=== PATIENT | female | born 1980 | race Caucasian/White ===

== ENCOUNTER 2022-04-10 10:53 | Emergency (ER) | payer OTHER ==
[~2022-04-10] VITALS: Ht 165.1 cm; Wt 63.5 kg
[~2022-04-10 10:53] MED LIST: ONDA-8 TL; PERC10 PO
[2022-04-10 11:08] VITALS: BP_SYST 128
[2022-04-10] MEDS ORDERED: MORPHINE 4 MG INJ. 4 MG/ML VIAL IM ONE (11:30)
[2022-04-10] MEDS ORDERED: ONDANSETRON 4 MG ODT TAB PO ONE (11:30)
[2022-04-10 11:42] LABS: BASOPHILS % (AUTO) 0.4 % (0.0-2.0); EOSINOPHILS % (AUTO) 1.1 % (0.0-4.0); HEMATOCRIT 39.9 % (36-48); HEMOGLOBIN 13.8 g/dL (12.0-16.0); LYMPHOCYTES # (AUTO) 1.1 K/uL (1.0-5.5); LYMPHOCYTES % (AUTO) 27.5 % (20.5-51.5); MEAN CORPUSCULAR HEMOGLOBIN 33 pg (27-31); MEAN CORPUSCULAR HGB CONC 35 % (32-36); MEAN CORPUSCULAR VOLUME 94 fL (79.0-98.0); MONOCYTES # (AUTO) 0.3 K/uL (0.0-1.0); MONOCYTES % (AUTO) 8.7 % (1.7-9.3); NEUTROPHILS # (AUTO) 2.5 K/uL (1.8-7.7); NEUTROPHILS % (AUTO) 62.3 % (40.0-70.0); PLATELET COUNT (AUTO) 281 K/uL (130-430); RED BLOOD CELL COUNT(AUTO) 4.23 MIL/uL (4.2-6.2); RED CELL DISTRIBUTION WIDTH 14.2 % (9.0-15.0)
[2022-04-10 11:47] LABS: CALCIUM 9.1 mg/dL (8.4-11.0); CREATININE 0.53 mg/dL (0.55-1.30)
[2022-04-10 11:52] LABS: ALBUMIN 3.8 g/dL (3.4-4.8); TOTAL BILIRUBIN 0.6 mg/dL (0.0-1.0)
[2022-04-10] MEDS ORDERED: ONDA-8 TL (13:36)
[2022-04-10] MEDS ORDERED: OXYC-128 PO (13:36)
[2022-04-10] MEDS ORDERED: DICY10CA13 PO (13:36)
[2022-04-10 13:50] VITALS: BP_SYST 134
== END 2022-04-10 13:50 | disposition home or self-care (01) ==
LOC: SED 10:53
DX: R10.30 Lower abdominal pain, unspecified (principal); R11.2 Nausea with vomiting, unspecified; R19.7 Diarrhea, unspecified; Z88.6 Allergy status to analgesic agent; Z88.8 Allergy status to other drugs, medicaments and biological substances; Z79.899 Other long term (current) drug therapy
CPT/HCPCS: 99285; 74176; 80053; 83690; 85025; 36415; 76376; 81002; 81025; 96372; Q0162; J2270

== ENCOUNTER 2022-05-16 08:33 | Emergency (ER) | payer OTHER ==
[~2022-05-16] VITALS: Ht 165.1 cm; Wt 68.0 kg
[~2022-05-16 08:33] MED LIST changes: +DICY10CA13 PO; +OXYC-128 PO
[2022-05-16 08:35] VITALS: BP_SYST 113
--- NOTE | 2022-05-16 08:35 | NUR ---
BROUGHT BACK TO BED #3 AND TRIAGED. REPORT GIVEN TO TRINA
--- NOTE | 2022-05-16 08:52 | NUR ---
DR MCGILL AT BEDSIDE FOR EVALUATION
--- NOTE | 2022-05-16 08:55 | NUR ---
pt presents to ED with complaint of abdominal pain / nausea/ vomiting x 3 days. pt reports unable to follow up with GI doctor for various reasons. pt noted to have had x2 recent ER visits. pt is awake a/o x4 and verbally responsive. no acute distress noted. breathing even and unlabored. safety measures in place
[2022-05-16] MEDS ORDERED: ONDANSETRON HCL 4 MG/2 ML VIAL IVP ONE (09:00)
[2022-05-16] MEDS ORDERED: MORPHINE 4 MG INJ. 4 MG/ML VIAL IVP ONE (09:00)
--- NOTE | 2022-05-16 09:10 | NUR ---
Pt initially stated daughter brought her and was in lobby. When asked pt if she can come in ED so that narcotic can be administered, pt stated "oh shes in the car". RN asked pt again if daughter can come into ED so we can see her so that narcotic can be administered as she cannot drive with narcotic administered. Pt then stated "oh i cant take like an uber" RN informed her that MD advised uber cannot be taken home if her daughter is here. Pt then stated, "oh i think she left, let me call her". MD beatty is currently at bedside talking to pt.
--- NOTE | 2022-05-16 09:44 | NUR ---
asked pt if she had an ETA on her daughter, pt stated "oh shes on her way, about 10min." MD beatty informed
[2022-05-16] MEDS ORDERED: NACL 0.9% 1,000 ML IV ONE (09:45)
[2022-05-16] MEDS ORDERED: NEU300 PO (11:02)
[2022-05-16 11:04] VITALS: BP_SYST 102
--- NOTE | 2022-05-16 11:04 | NUR ---
Patient given written and verbal discharge instructions and verbalizes understanding. ER MD discussed with patient the results and treatment provided. Patient in stable condition. ID arm band removed. IV catheter removed intact and dressing applied, no active bleeding. Rx of Gabapentin given. Patient educated on pain management and to follow up with PMD. Opportunity for questions provided and answered. Medication side effect fact sheet provided.
== END 2022-05-16 11:04 | disposition home or self-care (01) ==
LOC: SED 08:33
DX: R10.9 Unspecified abdominal pain (principal); R19.7 Diarrhea, unspecified; R11.10 Vomiting, unspecified; K50.90 Crohn's disease, unspecified, without complications; Z88.1 Allergy status to other antibiotic agents; Z88.6 Allergy status to analgesic agent; Z88.8 Allergy status to other drugs, medicaments and biological substances; Z79.899 Other long term (current) drug therapy
CPT/HCPCS: 99284; 96374; 96361; 96375; 81025; J2405; J2270; J7030

== ENCOUNTER 2023-12-22 11:31 | Emergency (ER) | payer OTHER ==
[~2023-12-22] VITALS: Ht 165.1 cm; Wt 68.0 kg
[~2023-12-22 11:31] MED LIST changes: +DICY-14 PO; -DICY10CA13 PO; +NEU300 PO
[2023-12-22 11:32] VITALS: BP_SYST 93; PULSE 79; RESP 17; TEMP 98.3; O2SAT 97
[2023-12-22 12:50] LABS: BASOPHILS % (AUTO) 0.3 % (0.0-2.0); EOSINOPHILS # (AUTO) 0.2 K/uL (0.0-0.4); EOSINOPHILS % (AUTO) 3.1 % (0.0-4.0); HEMATOCRIT 37.5 % (36-48); HEMOGLOBIN 12.9 g/dL (12.0-16.0); LYMPHOCYTES # (AUTO) 2.3 K/uL (1.0-5.5); LYMPHOCYTES % (AUTO) 39.3 % (20.5-51.5); MEAN CORPUSCULAR HEMOGLOBIN 31 pg (27-31); MEAN CORPUSCULAR HGB CONC 35 % (32-36); MEAN CORPUSCULAR VOLUME 91 fL (79.0-98.0); MONOCYTES # (AUTO) 0.3 K/uL (0.0-1.0); MONOCYTES % (AUTO) 5.4 % (1.7-9.3); NEUTROPHILS # (AUTO) 3.1 K/uL (1.8-7.7); NEUTROPHILS % (AUTO) 51.9 % (40.0-70.0); PLATELET COUNT (AUTO) 412 K/uL (130-430); RED BLOOD CELL COUNT(AUTO) 4.11 MIL/uL (4.2-6.2); RED CELL DISTRIBUTION WIDTH 14.4 % (9.0-15.0); WHITE BLOOD COUNT (AUTO) 5.9 K/uL (4.8-10.8)
[2023-12-22 13:04] LABS: SERUM HCG (QUALITATIVE) NEGATIVE (NEGATIVE)
[2023-12-22 13:11] LABS: PROTHROMBIN TIME 10.1 SECS (9.5-12.5)
[2023-12-22 14:18] LABS: ALBUMIN 3.4 g/dL (3.4-4.8); BILIRUBIN,DIRECT 0.1 mg/dL (0.0-0.3); CALCIUM 8.3 mg/dL (8.4-11.0); CREATININE 0.68 mg/dL (0.55-1.30); TOTAL PROTEIN, SERUM 6.9 g/dL (6.4-8.3)
[2023-12-22] MEDS: MORPHINE 4 MG INJ. 4 MG/ML VIAL IM ONE (14:27)
[2023-12-22 14:48] VITALS: BP_SYST 100; PULSE 82; RESP 17; TEMP 98.3; O2SAT 98
== END 2023-12-22 14:48 | disposition home or self-care (01) ==
LOC: SED 11:31
DX: R10.9 Unspecified abdominal pain (principal); R11.2 Nausea with vomiting, unspecified; R19.7 Diarrhea, unspecified; K50.90 Crohn's disease, unspecified, without complications; Z90.49 Acquired absence of other specified parts of digestive tract; Z88.1 Allergy status to other antibiotic agents; Z91.041 Radiographic dye allergy status; Z88.6 Allergy status to analgesic agent; Z88.8 Allergy status to other drugs, medicaments and biological substances
CPT/HCPCS: 99285; 74176; 80076; 80048; 82150; 84703; 83690; 85025; 85610; 85730; 36415; 96372; 83605; 82397; J2270